=== PATIENT | male | born 1965 | race Caucasian/White ===

== ENCOUNTER 2017-09-11 20:22 | Emergency (ER) | payer OTHER ==
[~2017-09-11] VITALS: Ht 182.9 cm; Wt 89.9 kg
[~2017-09-11 20:22] MED LIST: ASPCH81X PO; CARV3.12 PO; CLOP1TAB15 PO; ENAL5TAB83 PO; LOVA40TA4 PO; MAGNESIUM PO
[2017-09-11 20:26] VITALS: TEMP 37.2; Ht 182.9 cm; Wt 89.9 kg
[2017-09-11 20:45] VITALS: O2SAT 98
[2017-09-11 21:04] LABS: BASO % 0.2 %; BASO ABS # 0.02 K/uL (0-0.2); EOS % 1.1 %; EOS ABS # 0.09 K/uL (0-0.5); HEMATOCRIT 41.8 % (42-52); HEMOGLOBIN 15.1 g/dL (14.0-18.0); IG# 0.02 K/uL (0.00-0.02); LYMPH % 27.6 %; LYMPH ABS # 2.24 K/uL (1.2-3.4); MEAN CELL VOLUME 87.1 fL (80-100); MEAN CORPUSCULAR HEMOGLOBIN 31.5 pg (25-34); MEAN CORPUSCULAR HGB CONC 36.1 g/dl (32-36); MEAN PLATELET VOLUME 10.2 fL (7.4-10.4); MONO % 15.1 %; MONO ABS # 1.23 K/uL (0.11-0.59); NEUT % 55.8 %; NEUT ABS # 4.53 K/uL (1.4-6.5); PLATELET COUNT 146 K/uL (130-400); RED CELL DISTRIBUTION WIDTH SD 41.8 fL (36.4-46.3); WHITE BLOOD COUNT 8.13 K/uL (4.8-10.8)
[2017-09-11 21:15] LABS: INR 0.9 (0.9-1.1); PTT PATIENT 30.3 SECONDS (21.0-31.0)
[2017-09-11] MEDS ORDERED: ACETAMINOPHEN 500 MG TAB PO STA (21:22)
[2017-09-11] MEDS ORDERED: SODIUM CHLORIDE 0.9% 500ML 500 ML IV STA (21:22)
[2017-09-11 21:24] LABS: ALBUMIN 3.4 gm/dl (3.4-5.0); CALCIUM 8.9 mg/dl (8.5-10.1); CREATININE 0.86 mg/dl (0.60-1.40); POTASSIUM 3.9 mmol/L (3.5-5.1)
[2017-09-11 21:27] LABS: TOTAL PROTEIN 7.4 gm/dl (6.4-8.2)
--- NOTE | 2017-09-11 21:29 | EMERGENCY ROOM VISIT NOTE ---
History First contact with patient: 21:12 Chief Complaint: FLU LIKE SX Stated Complaint: FEVER,CANT BREATHE,COUGH,HEADACHE,CARDIAC HX Nursing Triage Summary: see traige note History of Present Illness The patient is a 51 year old male who presents to the Emergency Room with complaints of cough, fever, and generalized malaise and achiness 5 days. The patient states he feels his symptoms are staying the same or getting worse. He reports fever of 101-10 2F intermittently over the past 5 days. He states he is having difficulty sleeping, and has been feeling weak. The patient does have a history of heart disease, and feels that he is stressing his heart due to the illness. The patient took one dose of Tylenol Cold and flu, did note mild improvement in his symptoms, however has not continued to take the medication. The patient denies nausea, vomiting, diarrhea, constipation, abdominal pain, otalgia, and sore throat. He does complain of cough, wheezing, dyspnea, rhinorrhea, and congestion. He states he does occasionally cough up clear sputum. Patient did not get a flu vaccination this year. He associates shortness of breath with coughing spells. He has not seen a provider regarding his illness since his symptoms began. Review of Systems A complete 10 point review of systems was reviewed with the patient with pertinent positives and negatives as per history of present illness. All else were negative. Past Medical/Surgical History Medical Problems: (1) Coronary arteriosclerosis in patient with history of previous myocardial infarction Family History FH: heart disease Social History Smoking Status: Current Every Day Smoker Alcohol Use: occasionally Drug Use: none Marital Status: Housing Status: lives with family Occupation Status: employed Current/Historical Medications Scheduled Aspirin (Aspirin Chewable), 81 MG PO QAM Carvedilol (Coreg), 3.125 MG PO BID Clopidogrel (Plavix), 75 MG PO QAM Enalapril (Vasotec), 2.5 MG PO QAM Lovastatin (Mevacor), 40 MG PO QPM Magnesium (Magnesium 250 mg), 1 TAB PO QAM Scheduled PRN Benzonatate (Tessalon Perles), 200 MG PO TID PRN for Cough Physical Exam Vital Signs Date Time Temp Pulse Resp B/P (MAP) Pulse Ox O2 Delivery O2 Flow Rate FiO2 09/11/17 22:42 85 18 122/81 98 09/11/17 20:59 87 1/12/18 20:45 98 Room Air 09/11/17 20:45 91 18 125/84 98 Room Air 09/11/17 20:26 37.2 92 20 113/71 93 Room Air Physical Exam VITALS: Vitals are noted on the nurse's note and reviewed by myself. Vital signs stable. GENERAL: This is a 51-year-old white male, in no acute distress, nondiaphoretic , well-developed well-nourished. SKIN: The skin was without rashes, erythema, edema, or bruising. There is no tenting of the skin. Capillary reflex less than 2 seconds. HEAD: Normocephalic atraumatic. EARS: External auditory canals clear, tympanic membranes pearly hanna without erythema or effusion bilaterally. EYES: Pupils equal round and reactive to light and accommodation. Conjunctivae without injection, sclerae without icterus. Extraocular movements intact. NOSE: Patent, turbinates without inflammation or discharge. No sinus tenderness. MOUTH: Mucous membranes moist. Tonsils are not enlarged. Pharynx without erythema or exudate. Uvula midline. Airway patent. Tongue does not deviate. NECK: Supple without nuchal rigidity. No lymphadenopathy. No thyromegaly. Cervical spine is nontender. No JVD. HEART: Regular rate and rhythm without murmurs gallops or rubs. LUNGS: Clear to auscultation bilaterally without wheezes, rales or rhonchi in all anterior, lateral, and posterior lung mosquera. No dullness to percussion. No retractions or accessory muscle use. ABDOMEN: Positive bowel sounds x 4. Normal tympanic percussion. Soft, nontender, without masses or organomegaly. Osei sign negative. No guarding or rebound tenderness. MUSCULOSKELETAL: No muscle atrophy, erythema, or edema noted. Full range of motion without joint tenderness in all extremities. No tenderness to palpation. Normal gait. Strength 5/5 throughout. NEURO: Patient was alert and oriented to person place and time. Normal sensation to light and sharp touch. Deep tendon reflexes 2+ throughout. No focal neurological deficits. Medical Decision & Procedures ER Provider Diagnostic Interpretation: CBC is without leukocytosis, anemia, thrombocytopenia. Coagulation studies were negative. CMP was without renal, hepatic, electrolyte abnormalities. Influenza testing negative. Laboratory Results 09/11/17 20:40 Red Blood Count 4.80, Mean Corpuscular Volume 87.1, Mean Corpuscular Hemoglobin 31.5, Mean Corpuscular Hemoglobin Concent 36.1, Mean Platelet Volume 10.2, Neutrophils (%) (Auto) 55.8, Lymphocytes (%) (Auto) 27.6, Monocytes (%) (Auto) 15.1, Eosinophils (%) (Auto) 1.1, Basophils (%) (Auto) 0.2, Neutrophils # (Auto ) 4.53, Lymphocytes # (Auto) 2.24, Monocytes # (Auto) 1.23, Eosinophils # (Auto ) 0.09, Basophils # (Auto) 0.02 09/11/17 20:40 Test 09/11/17 20:39 09/11/17 20:40 Influenza Type A Antigen Neg for Influ A (NEG) Influenza Type B Antigen Neg for Influ B (NEG) White Blood Count 8.13 K/uL (4.8-10.8) Red Blood Count 4.80 M/uL (4.7-6.1) Hemoglobin 15.1 g/dL (14.0-18.0) Hematocrit 41.8 % (42-52) Mean Corpuscular Volume 87.1 fL (80-100) Mean Corpuscular Hemoglobin 31.5 pg (25-34) Mean Corpuscular Hemoglobin Concent 36.1 g/dl (32-36) Platelet Count 146 K/uL (130-400) Mean Platelet Volume 10.2 fL (7.4-10.4) Neutrophils (%) (Auto) 55.8 % Lymphocytes (%) (Auto) 27.6 % Monocytes (%) (Auto) 15.1 % Eosinophils (%) (Auto) 1.1 % Basophils (%) (Auto) 0.2 % Neutrophils # (Auto) 4.53 K/uL (1.4-6.5) Lymphocytes # (Auto) 2.24 K/uL (1.2-3.4) Monocytes # (Auto) 1.23 K/uL (0.11-0.59) Eosinophils # (Auto) 0.09 K/uL (0-0.5) Basophils # (Auto) 0.02 K/uL (0-0.2) RDW Standard Deviation 41.8 fL (36.4-46.3) RDW Coefficient of Variation 13.0 % (11.5-14.5) Immature Granulocyte % (Auto) 0.2 % Immature Granulocyte # (Auto) 0.02 K/uL (0.00-0.02) Prothrombin Time 9.8 SECONDS (9.0-12.0) Prothromb Time International Ratio 0.9 (0.9-1.1) Activated Partial Thromboplast Time 30.3 SECONDS (21.0-31.0) Partial Thromboplastin Ratio 1.2 Anion Gap 8.0 mmol/L (3-11) Est Creatinine Clear Calc Drug Dose 111.6 ml/min Estimated GFR () 116.4 Estimated GFR (Non- 100.4 BUN/Creatinine Ratio 12.7 (10-20) Calcium Level 8.9 mg/dl (8.5-10.1) Total Bilirubin 0.7 mg/dl (0.2-1) Aspartate Amino Transf (AST/SGOT) 20 U/L (15-37) Alanine Aminotransferase (ALT/SGPT) 19 U/L (12-78) Alkaline Phosphatase 54 U/L (45-117) Total Protein 7.4 gm/dl (6.4-8.2) Albumin 3.4 gm/dl (3.4-5.0) Globulin 4.0 gm/dl (2.5-4.0) Albumin/Globulin Ratio 0.9 (0.9-2) Medications Administered Medications (Trade) Dose Ordered Sig/Jeff Route Start Time Stop Time Status Last Admin Dose Admin Sodium Chloride 500 ml @ 999 mls/hr Q31M STAT IV 09/11/17 21:22 09/11/17 21:52 DC 09/11/17 21:35 999 MLS/HR Acetaminophen (Tylenol Tab) 1,000 mg NOW STAT PO 09/11/17 21:22 09/11/17 21:24 DC 09/11/17 21:35 1,000 MG Benzonatate (Tessalon Perles Cap) 200 mg NOW STAT PO 09/11/17 22:25 09/11/17 22:26 DC 09/11/17 22:39 200 MG ECG Indication: SOB/dyspnea Rate (beats per minute): 81 Rhythm: normal sinus Findings: no acute ischemic change Comparison ECG Date: 07/2015 Change: no significant change ED Course The patient was seen and evaluated as above. IV access obtained, labs drawn. He was given 500 mL normal saline solution and 1000 mg Tylenol. I discussed lab results with the patient at bedside. He states he is feeling significantly better since the Tylenol. The patient does request something for the cough. He was given 200 mg benzonatate by mouth. Discharge instructions reviewed, the patient was discharged home in good condition. Medical Decision This is a 51-year-old male patient presents to the emergency department today complaining of a five-day long history of cough, fevers, generalized achiness, and upper respiratory symptoms. The patient's lung sounds are clear, and there is no dullness to percussion, and he is not coughing up purulent sputum. His symptoms are consistent with influenza, despite negative influenza testing, I still suspect viral etiology of his illness. The patient has taken very little OTC medication, but he did respond very well to Tylenol and benzonatate here in the emergency department. The patient will be treated supportively for right now, was given instructions on when to return. He was encouraged to follow up outpatient with his PCP early next week for reevaluation. The patient and his were in agreement with the assessment and plan. I answered to their satisfaction. Differential diagnosis includes influenza, bronchitis, upper respiratory infection, cardiac etiology, pneumonia, pulmonary etiology, malignancy, and others Medication Reconcilliation Current Medication List: was personally reviewed by me Blood Pressure Screening Patient's blood pressure: Normal blood pressure Impression Primary Impression: Influenza-like symptoms Departure Information Dispostion Home / Self-Care Condition GOOD Prescriptions Benzonatate (Tessalon Perles) 200 Mg Cap 200 MG PO TID Y for Cough, #30 CAP Prov: Shirley Regan PA-C 09/11/17 Referrals No Doctor, Assigned (PCP) Patient Instructions ED Flu, My [facility] Additional Instructions You were seen and evaluated in the emergency department today for an upper respiratory infection/influenza-like illness. I do feel that based on your symptoms, and the duration of illness, this is likely viral in nature. As discussed, antibiotics will not treat viral illness. You have been given benzonatate (Tessalon Pearles) to be used for coughing. These should be taken 1 capsule up to 3 times per day as needed for coughing. Do not take this medication more than prescribed. You may use this medication in addition to OTC cough medications. For your sore throat, you may use a 1:1 mixture of liquid Benadryl and liquid Maalox. Gargle and spit this mixture. It will help to soothe the throat and provide some relief. Drink warm tea with honey and lemon, as this will also help to soothe the throat. Gargle with salt water frequently. As discussed, you should take OTC Mucinex for your symptoms. Please do not exceed the recommended daily dosages. Ibuprofen(Motrin, Advil) may be used for fever or pain. Use 600mg every six hours as needed. Take with food. Avoid using more than 2400mg in a 24 hour period. Do not use 2400mg per day for more than three consecutive days without physician direction. Prolonged inappropriate use can lead to stomach upset or ulcers. You may take Naproxen 1-2 tablets twice daily in place of ibuprofen. This medication will help with the swelling in your sinuses. (AND/OR) Acetaminophen(Tylenol) may be used for fever or pain. Use 1000mg every six hours as needed. Avoid using more than 3000mg in a 24 hour period. 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 As discussed, use caution, especially with NSAID usage. For congestion, you may use Flonase OTC. You may want to consider zinc, echinacea, and vitamin C to help boost your immunity. Please get plenty of rest and drink plenty of fluids. Please return or follow-up with your PCP in 1 week if you are not experiencing any improvement in your symptoms. Return to the emergency department for coughing up blood, difficulty breathing, chest pain, worsening symptoms, or for other concerns.
[2017-09-11 21:33] LABS: INFLUENZA B ANTIGEN Neg for Influ B (NEG)
[2017-09-11] MEDS ORDERED: MAGN250T3 PO (21:50)
[2017-09-11] MEDS ORDERED: BENZ1CAP90 PO (22:25)
[2017-09-11] MEDS ORDERED: BENZONATATE 100MG CAP PO STA (22:25)
[2017-09-11 22:42] VITALS: BP 122/81; PULSE 85; O2SAT 98
== END 2017-09-11 22:42 | disposition home or self-care (01) ==
LOC: C.EDB 20:24
DX: J11.1 Influenza due to unidentified influenza virus with other respiratory manifestations (principal); I25.10 Atherosclerotic heart disease of native coronary artery without angina pectoris; I25.2 Old myocardial infarction; F17.200 Nicotine dependence, unspecified, uncomplicated; Z79.82 Long term (current) use of aspirin; Z79.899 Other long term (current) drug therapy; Z82.49 Family history of ischemic heart disease and other diseases of the circulatory system

== ENCOUNTER → 2017-12-25 | Outpatient (CLI) | payer OTHER ==
[~2017-12-25] MED LIST changes: +BENZ1CAP90 PO; +MAGN250T3 PO; -MAGNESIUM PO
[2017-12-25 14:05] LABS: HEMOGLOBIN A1C 5.7 % (4.5-5.6)
[2017-12-25 14:51] LABS: ALBUMIN 3.8 gm/dl (3.4-5.0); ALT/SGPT 22 U/L (12-78); AST/SGOT 16 U/L (15-37); BLOOD UREA NITROGEN 13 mg/dl (7-18); CARBON DIOXIDE 27 mmol/L (21-32); CHOLESTEROL 189 mg/dl (0-200); GLUCOSE 97 mg/dl (70-99); POTASSIUM 4.4 mmol/L (3.5-5.1); SODIUM 138 mmol/L (136-145)
[2017-12-25 14:54] LABS: ALKALINE PHOSPHATASE 64 U/L (45-117); LDL CHOLESTEROL CALCULATED 127 mg/dl; TOTAL PROTEIN 7.3 gm/dl (6.4-8.2)
== END | disposition home or self-care (01) ==
LOC: C.LABPBG 10:30
PROVIDERS: ATTEND Internal Medicine Interventional Cardiology
DX: I25.2 Old myocardial infarction (principal); E78.5 Hyperlipidemia, unspecified; I10 Essential (primary) hypertension; I50.42 Chronic combined systolic (congestive) and diastolic (congestive) heart failure